=== PATIENT | female | born 1990 | race Caucasian/White ===

== ENCOUNTER → 2019-03-26 17:30 | Observation (INO) | END | disposition home or self-care (01) | LOC: 1NENULAB | PROVIDERS: ADMIT Advanced Practice Midwife; ATTEND Advanced Practice Midwife ==

== ENCOUNTER → 2019-03-29 14:40 | Observation (INO) ==
[2019-03-28 22:35] LABS: Bilirubin,Urine Negative (Negative); Blood,Urine Trace (Negative); Clarity,Urine Turbid (Clear); Color,Urine Yellow (Yellow); Glucose,Urine (UA) Normal (Normal); Ketones,Urine Negative (Negative); Leukocyte Esterase,Urine Large (Negative); Nitrite,Urine Positive (Negative); PH,Urine 6.5 pH Units (5.0-8.0); Protein,Urine 30 mg/dL (Neg-Trace)
[2019-03-28 22:36] LABS: Bacteria,Urine Many per hpf (None-Few); Hyaline Casts,Urine None Seen per lpf (None-Few); RBC,Urine 15-30 per hpf (0-3); Squamous Epithelial Cell,Urine Many per lpf (None-Few); WBC,Urine TNTC per hpf (0-3)
[2019-03-28 22:46] LABS: Amphetamine Screen,Urine Negative ng/mL (Cutoff=1000); Barbiturate Screen,Urine Negative ng/mL (Cutoff=200); Benzodiazepines Screen,Urine Negative ng/mL (Cutoff=200); Cannabinoid Screen,Urine Negative ng/mL (Cutoff = 50); Cocaine Screen,Urine Negative ng/mL (Cutoff= 300); Opiate Screen,Urine Negative ng/mL (Cutoff=300); Phencyclidine Screen,Urine Negative ng/mL (Cutoff=25)
[2019-03-28 22:57] LABS: Basophils % 0.2 %; Eosinophils # 0.2 K/mcL (0.0-0.6); Eosinophils % 1.7 %; Hematocrit 32.8 % (35.3-44.9); Hemoglobin 11.4 g/dL (11.5-15.4); Lymphocytes # 0.6 K/mcL (0.6-4.6); Mean Corpuscular HGB Conc 34.8 g/dL (31.6-35.5); Mean Corpuscular Hemoglobin 29.9 pg (28.0-33.3); Mean Corpuscular Volume 86.1 fL (83.0-100.0); Mean Platelet Volume 11.9 fL (9.4-12.4); Monocytes # 0.8 K/mcL (0.0-1.3); Monocytes % 9.1 %; Neutrophils # 7.2 K/mcL (1.6-8.9); Platelet Count 124 K/mcL (140-400); Red Blood Count 3.81 M/mcL (3.82-4.97); Red Cell Distribution Width 13.9 % (11.5-14.5); White Blood Count 8.9 K/mcL (4.3-11.1)
[2019-03-29] MEDS: Acetaminophen 325 MG TABLET PO PRN ×3 (00:41→12:36)
[~2019-03-29 14:40] MED LIST: Nitrofurantoin (BID) 100 MG CAPSULE PO STA; Ringers Solution, Lactated 1,000 ML IVC ONE; Ringers Solution, Lactated 1,000 ML ONE; cefTRIAXone 2,000 MG in 0.9 % Sodium Chloride Mini Bag 100 ML IVPB ONE
== END | disposition home or self-care (01) ==
LOC: 1NENULAB
PROVIDERS: ADMIT Advanced Practice Midwife; ATTEND Advanced Practice Midwife

== ENCOUNTER 2019-04-03 05:48 | Inpatient (IN) ==
[2019-04-03] MEDS ORDERED: Naloxone 0.4 MG/ML INJ IVP PRN (05:55)
[2019-04-03] MEDS ORDERED: Ondansetron 4 MG/2 ML VIAL IVP PRN (05:55)
[2019-04-03] MEDS ORDERED: Lidocaine 1% 20 ML MDV INFILT PRN (05:55)
[2019-04-03] MEDS ORDERED: Famotidine 20 MG/2 ML VIAL IVP PRN (05:55)
[2019-04-03] MEDS ORDERED: *HR* Nalbuphine 10 MG/ML AMPUL IVP PRN (05:55)
[2019-04-03] MEDS ORDERED: Metoclopramide 10 MG/2 ML VIAL IVP PRN (05:55)
[2019-04-03] MEDS ORDERED: Oxytocin 20 units/ LR 1000 mL 20 UNIT/1,000 ML BAG IVC SCH ×2 (06:00→15:49)
[2019-04-03 06:27] LABS: Basophils % 0.5 %; Eosinophils # 0.3 K/mcL (0.0-0.6); Eosinophils % 3.5 %; Hematocrit 33.8 % (35.3-44.9); Hemoglobin 11.6 g/dL (11.5-15.4); Immature Granulocytes % 1.4 % (0-4); Lymphocytes # 1.1 K/mcL (0.6-4.6); Lymphocytes % 12.7 %; Mean Corpuscular HGB Conc 34.3 g/dL (31.6-35.5); Mean Corpuscular Hemoglobin 29.8 pg (28.0-33.3); Mean Corpuscular Volume 86.9 fL (83.0-100.0); Mean Platelet Volume 11.6 fL (9.4-12.4); Monocytes # 0.5 K/mcL (0.0-1.3); Monocytes % 6.3 %; Neutrophils # 6.5 K/mcL (1.6-8.9); Platelet Count 149 K/mcL (140-400); Red Blood Count 3.89 M/mcL (3.82-4.97); Red Cell Distribution Width 14.3 % (11.5-14.5); Segmented Neutrophils % 75.6 %; White Blood Count 8.6 K/mcL (4.3-11.1)
[2019-04-03 06:33] LABS: Amphetamine Screen,Urine Negative ng/mL (Cutoff=1000); Barbiturate Screen,Urine Negative ng/mL (Cutoff=200); Benzodiazepines Screen,Urine Negative ng/mL (Cutoff=300)
[2019-04-03 06:34] LABS: Cannabinoid Screen,Urine Negative ng/mL (Cutoff = 50); Cocaine Screen,Urine Negative ng/mL (Cutoff= 300); Opiate Screen,Urine Negative ng/mL (Cutoff=300); Phencyclidine Screen,Urine Negative ng/mL (Cutoff=25)
[2019-04-03] MEDS: Ringers Solution, Lactated 1,000 ML IVC SCH ×2 (06:52→11:53)
[2019-04-03] MEDS: Ibuprofen 600 MG TABLET PO PRN (17:27)
[2019-04-03] MEDS: Acetaminophen 325 MG TABLET PO PRN (19:42)
[2019-04-03] MEDS ORDERED: cephALEXin 500 MG CAPSULE PO SCH (21:00)
[2019-04-04] MEDS: Ibuprofen 600 MG TABLET PO PRN (06:15)
[2019-04-04] MEDS: Acetaminophen 325 MG TABLET PO PRN (06:15)
[2019-04-04 07:49] VITALS: BP 106/70
[2019-04-04] MEDS ORDERED: Prenatal Vit/FA 1 EACH TABLET PO SCH (09:00)
== END 2019-04-04 11:15 | disposition home or self-care (01) | DRG 560 ==
LOC: 1NENULAB 05:48 → 1NENUOBS 16:26
PROVIDERS: ADMIT Registered Nurse; ATTEND Registered Nurse